=== PATIENT | female | born 1990 | race American Indian/Alaskan Native ===

== ENCOUNTER 2018-01-01 09:50 | Inpatient (IN) | payer MEDICAID ==
--- NOTE | 2017-12-31 18:51 | History and Physical Report ---
History of Present Illness Date of examination: 12/26/17 Chief complaint: Repeat delivery History of present illness: Past History : 4 Term Births: 2 Premature Births: 0 Living Children: 2 Para: 2 Mult. Births: 0 Prev : 2 Prev. attempt? 0 Aborta: 1 Elect. Ab: 0 Spont. Ab: 0 Ectopics: 1 # 1 Delivery date: 08/17/2008 Weeks Gestation: 41 labor: no Delivery type: Hours of labor: 18 Anesthesia type: spinal Delivery location: [facility] Sex: Female weight: 7-4 Name: Jacquie Comments: Failed induction # 2 Delivery date: 08/2015 Delivery type: ectopic Delivery location: [place] Comments: MTX # 3 Delivery date: 06/30/2016 Weeks Gestation: 39 labor: no Delivery type: Anesthesia type: spinal Delivery location: [facility] Infant Sex: Male weight: 8-15 Name: Pérez Past Medical History: Blood Transfusion (2015) Anemia Past Surgical History: (2008) (2015) Family History Summary: Other family member - Has No Family History of Ovarvian Cancer - Entered On: 07/09 Other family member - Has No Family History of Colon Cancer - Entered On: 2017 Other family member - Has Family History of Hypertension - Entered On: 07/09/2017 Other family member - Has Family History of Diabetes - Entered On: 07/09/2017 Other family member - Has Family History Breast Cancer - Entered On: 07/09/2017 Social History: [employer] student Patient is single Risk Factors: Smoked Tobacco Use: Never smoker Drug use: no HIV high-risk behavior: low risk Alcohol use: no Past Medical History Blood Transfusions: yes 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 of genital herpes: no Genetic History Congenital Heart Defect: Mom: no Dad: no Ruma Disease: Mom: no Dad: no Thalassemia Mom: no Dad: no Neural Tube Defect Mom: no Dad: no Down's Syndrome Mom: no Dad: no Addi-Sachs Mom: no Dad: no Sickle Cell Disease/Trait Mom: yes Dad: no Hemophilia Mom: no Dad: no Muscular Dystrophy Mom: no Dad: no Cystic Fibrosis Mom: no Dad: no Sarah Chorea Mom: no Dad: no Mental Retardation Mom: no Dad: no Fragile X Mom: no Dad: no Other Genetic/Chromosomal Disorder Mom: no Dad: no Child w/other defect Mom: no Dad: no Enviromental Exposures Xray Exposure: no Medication, drug, or alcohol use since LMP: no Chemical/Other Exposure: no Exposure to Cat Liter: no Hx of Parvovirus (Fifth Disease): no Active Medications (reviewed today): FORMULA 27-1 MG ORAL TABLET ( VIT-FE FUMARATE-FA) 1 po q day as directed Current Allergies (reviewed today): No known allergies Problem # 1: Maternal care due to uterine scar from other previous surgery ( [id number]) Orders: OB follow up ([id number]) Urine Chemstrip ([id number]) Consent reviewed and signed . The risks and alternatives for this surgery were reviewed with the patient. She was informed of possible bleeding, infection, injury to bowel, bladder, ureters or other adjacent organs. The patient was instructed/informed the following: The normal length of hospital stay for this procedure. Nothing to eat or drink after midnight the evening prior to surgery. Pre-op instruction sheets given. Wound care instructions given. Infection precautions reviewed, patient to call for any signs or symptoms of infection. The usual discomforts associated with this procedure were detailed. Proper use of pain medicines was reviewed. Patient was given ample opportunity to have all her questions answered before signing informed consent. Past History - Obstetrical History Expected Date of Delivery: 01/05/18 Actual Gestation: 39 Week(s) 3 Day(s) : 4 Medications and Allergies Allergies Allergy/AdvReac Type Severity Reaction Status Date / Time No Known Allergies Allergy Unverified 06/29/16 07:00 Home Medications Medication Instructions Recorded Confirmed Last Taken Type Pnv Plus Multivit Tab 1 tab PO DAILY 06/30/16 01/01/18 1 Day Ago History ~06/29/16 - Physical Exam Breasts: Positive: deferred Cardiovascular: Regular rate Lungs: Positive: Clear to auscultation, Normal air movement Abdomen: Positive: other (obese) Uterus: Positive: enlarged. Negative: tender - Obstetrical FHR: category 1 Results Result Diagrams: 01/01/18 10:10 All other labs normal. Assessment and Plan Patient has been reassessed/reevaluated/re-examined. H&P has been reviewed. No interval changes. - Patient Problems (1) 39 weeks gestation of Current Visit: No Status: Acute (2) Adult BMI 36.0-36.9 kg/sq m Current Visit: No Status: Acute (3) Previous section Current Visit: No Status: Acute
[~2018-01-01 09:50] MED LIST: ANCEF/STERILE WATER 2 GM/20 ML 2 GM/20 ML SYRINGE IV NR; BICITRA PO NR; PEPCID IV NR; REGLAN IV NR
[2018-01-01 10:38] LABS: Hematocrit 29.3 % (30.3-42.9); Hemoglobin 10.1 gm/dl (10.1-14.3); Mean Corpuscular HGB Conc 35 % (30-34); Mean Corpuscular Hemoglobin 28 pg (28-32); Mean Corpuscular Volume 81 fl (79-97); Platelet Count 360 K/mm3 (140-440); Red Cell Distribution Width 16.7 % (13.2-15.2)
[2018-01-01] MEDS: LACTATED RINGERS 1,000 ML IV SCH ×2 (10:39→10:40)
[2018-01-01] MEDS ORDERED: PHENERGAN PO PRN (10:39)
[2018-01-01] MEDS ORDERED: ZOFRAN IV PRN (10:39)
[2018-01-01] MEDS ORDERED: NARCAN 0.4 MG/1 ML IV PRN ×2 (10:39→16:53)
[2018-01-01] MEDS ORDERED: PHENERGAN PR PRN (10:39)
[2018-01-01] MEDS ORDERED: BENADRYL IV PRN (10:39)
--- NOTE | 2018-01-01 10:39 | Anesthesia Consultation ---
Anesthesia Consult and Med Hx Date of service: 01/01/18 - Airway Anesthetic Teeth Evaluation: Good ROM Head & Neck: Adequate Mental/Hyoid Distance: Adequate Mallampati Class: Class II Intubation Access Assessment: Probably Good - Pre-Operative Health Status ASA Pre-Surgery Classification: ASA2 Proposed Anesthetic Plan: Epidural, Spinal - Pulmonary Hx Asthma: No COPD: No Hx Pneumonia: No - Cardiovascular System Hx Hypertension: No - Central Nervous System Hx Seizures: No Hx Psychiatric Problems: No - Endocrine Hx Renal Disease: No Hx End Stage Renal Disease: No Hx Hypothyroidism: No Hx Hyperthyroidism: No - Hematic Hx Anemia: Yes (2008) Hx Sickle Cell Disease: No - Other Systems Hx Alcohol Use: No Hx Obesity: Yes (BMI 35.3)
--- NOTE | 2018-01-01 10:39 | Anesthesia Day of Surgery ---
Anesthesia Day of Surgery - Day of Surgery Patient Examined: Yes Patient H&P Reviewed: Yes Patient is NPO: Yes
[2018-01-01] MEDS ORDERED: SODIUM CHLORIDE FLUSH SYRINGE 10 ML IV NR (11:00)
[2018-01-01] MEDS ORDERED: ANCEF/STERILE WATER 2 GM/20 ML IV ONE (12:12)
[2018-01-01] MEDS ORDERED: WATER FOR IRRIG STERILE IR ONE (12:30)
[2018-01-01] MEDS ORDERED: NACL 0.9% IR ONE (12:30)
[2018-01-01] MEDS: PITOCin/NS 20 UNIT/1000ML DRIP 20 UNITS/1,000 ML BAG IV SCH ×2 (12:35→13:18)
[2018-01-01] MEDS ORDERED: NEO SYNEPHRINE/NS Syringe(OR USE) IV ONE ×2 (12:38)
[2018-01-01] MEDS ORDERED: METHERGINE IM ONE ×2 (12:41→13:26)
[2018-01-01] MEDS ORDERED: NACL 0.9% 1000 ML 1,000 ML ONE (12:44)
[2018-01-01] MEDS ORDERED: MORPHINE ONE (12:45)
[2018-01-01] MEDS ORDERED: XYLOCAINE MPF 2% ONE (12:46)
[2018-01-01] MEDS ORDERED: DILAUDID ONE (12:48)
[2018-01-01] MEDS: DILAUDID IV PRN ×2 (13:30→13:58)
--- NOTE | 2018-01-01 13:48 | Operative Report ---
Operative Report Operative Report: Date: 01/01/2018 Preoperative diagnosis: 1. Intrauterine at 39 weeks 2. Repeat delivery 3. Body Mass index 35 Postoperative diagnosis: 1. Intrauterine at 39 weeks 2. Repeat delivery 3. Body Mass index 35 Procedure: Low uterine transverse incision for delivery Surgeon: Chiquis Palacio MD Welfare Centre Manager: Ingrid Griggs CST Anesthesia: Epidural Anesthesiologist: Angel Peterson M.D. Estimated blood loss: 700 mL Urine out: 50 mL Findings: Live born female . Weight 6 lbs. 15 oz. Apgars 8 at 1 minute and 9 at 5 minutes. Uterus normal, tubes normal, ovaries normal. Procedure: After risk, benefits, complications, consequences and alternatives for this procedure were discussed with patient and consents were reviewed and signed, she was taken to the OR where epidural anesthesia was placed. She was then placed in the left lateral tilt position, and prepped and draped in the usual sterile fashion. Timeout was performed, and an appropriate level of anesthesia was noted, a Pfannenstiel incision was made and extended to the fascia which was incised and extended in the lateral directions. The overlying fascia was sharply dissected away from the underlying rectus muscles in the superior and inferior directions. The midline was entered bluntly. The vesicouterine fold was incised and with blunt dissection the bladder flap was created. A transverse incision was made in the lower uterine segment and extended in superiolateral direction with finger fractionation. Clear fluid was noted. The infant was delivered from cephalic OA position. Mouth and nose were bulb suctioned. Spontaneous cry and excellent tone were noted. Cord was doubly clamped and cut. The was given to /resuscitation team present. The placenta was manually extracted. The uterus was then exteriorized and cleared of any further products of conception or placental tissue. The incision was reapproximated using 0 Vicryl in a running interlocking stitch. Grossly normal uterus, tubes and ovaries were noted. Once hemostasis was noted, the uterus was allowed back into the pelvic cavity. The pelvis was irrigated with warm normal saline. Again hemostasis was noted . Surgicel applied for further hemostasis. Interceed was then placed to prevent adhesions. Then attention was turned to the rectus muscles. The rectus muscles reapproximated using 0 Vicryl in a simple interrupted stitch x 3. Once hemostasis was noted, the fascia was reapproximated using 0 Vicryl running stitch fashion. Once hemostasis was noted skin incision was reapproximated using 4-0 Vicryl on a Dhaval needle in a subcuticular manner. Counts were correct 3. Patient tolerated procedure well state recovery room in stable condition.
[2018-01-01] MEDS: TORADOL IV PRN (14:18)
[2018-01-01 15:41] LABS: Bilirubin,Urine NEG (Negative); Blood,Urine NEG (Negative); Color,Urine Yellow (Yellow); Hyaline Casts,Urine 1 /LPF; Mucus,Urine FEW /HPF; Protein,Urine <15 mg/dL mg/dL (Negative); Urobilinogen,Urine < 2.0 mg/dL (<2.0); WBC,Urine < 1.0 /HPF (0.0-6.0)
[2018-01-01] MEDS ORDERED: TYLENOL PR PRN (16:53)
[2018-01-01] MEDS ORDERED: LANSINOH TP PRN (16:53)
[2018-01-01] MEDS ORDERED: SODIUM CHLORIDE FLUSH SYRINGE 10 ML IV SCH (16:53)
[2018-01-01] MEDS ORDERED: TUCKS PAD TP PRN (16:53)
[2018-01-01] MEDS ORDERED: TYLENOL PO PRN (16:53)
[2018-01-01 16:54] LABS: Uric Acid 4.2 mg/dL (3.5-7.6)
[2018-01-01 17:00] LABS: Alanine Aminotransferase < 5 units/L (7-56)
[2018-01-01] MEDS ORDERED: D5LR 1,000 ML IV SCH (18:00)
[2018-01-01] MEDS ORDERED: PITOCin/NS 20 UNIT/1000ML DRIP 20 UNITS/1,000 ML BAG IV SCH (18:00)
[2018-01-02 00:40] LABS: Hematocrit 27.4 % (30.3-42.9); Hemoglobin 9.3 gm/dl (10.1-14.3)
[2018-01-02] MEDS: ANCEF/NS 1 GM/50 ML 1 GM/50 ML BAG IV SCH ×2 (01:30→08:15)
[2018-01-02] MEDS ORDERED: BOOSTRIX IM ONE (06:00)
[2018-01-02] MEDS: TORADOL IV PRN (06:14)
[2018-01-02] MEDS: PERCOCET 5/325 PO PRN ×3 (08:03→21:57)
--- NOTE | 2018-01-02 12:07 | Progress Note ---
Assessment and Plan patient doing well, no complaints, pain well controlled. She is oob in room with abd binder on. H&H 9.3/27.4, VSSAF (b/p's running 130-150's/70-80's - no ALBRIGHT , visual changes or epigastric pain.) incision D&I. Plan to continue postop pathway and monitoring for elevated b/p's. - Patient Problems (1) delivery delivered Current Visit: Yes Status: Acute Subjective - Subjective Date of service: 01/02/18 Principal diagnosis: postop day # 1 s/p repeat c/s Patient reports: appetite normal, voiding normally, pain well controlled, ambulating normally, no dizzy ambulation, no flatus, no nauseated : doing well, bottle feeding (breast and bottle feeding) Objective - Vital Signs Latest vital signs: Vital Signs Temp Pulse Resp BP BP Pulse Ox 01/02/18 08:14 98.4 F 73 16 137/77 99 01/02/18 04:40 98.3 F 83 20 143/88 97 01/02/18 01:20 98.5 F 81 20 141/84 99 01/01/18 21:01 80 153/86 100 01/01/18 19:27 97.7 F 79 20 163/99 100 01/01/18 16:30 98.0 F 73 18 136/71 93 01/01/18 14:15 75 11 L 142/87 99 01/01/18 14:10 70 9 L 150/85 99 01/01/18 14:05 72 13 148/84 95 01/01/18 14:00 98.1 F 73 11 L 145/87 100 01/01/18 13:55 65 11 L 155/83 99 01/01/18 13:50 69 11 L 147/79 100 01/01/18 13:45 67 10 L 143/79 99 01/01/18 13:40 70 9 L 143/87 100 01/01/18 13:35 69 14 137/78 95 01/01/18 13:30 70 12 137/77 98 01/01/18 13:25 76 12 139/77 98 01/01/18 13:20 82 12 141/77 99 01/01/18 13:16 91 H 17 141/82 01/01/18 13:15 97.9 F 01/01/18 13:13 89 108/62 Intake and Output 01/01/18 01/02/18 01/02/18 23:59 07:59 15:59 Intake Total 410 Output Total 300 1600 Balance -300 -1190 Intake: IV 50 ANCEF/NS 1 GM/50 ML 1 gm 50 In 50 ml @ 100 mls/hr IV Q8H [facility] Rx#:[id number] Oral 360 Output: Urine 300 1600 Indwelling Catheter 300 1200 Void 400 Other: Total, Intake Amount 120 Total, Output Amount 300 400 - Exam Breasts: Present: normal, Cardiovascular: Present: Regular rate Lungs: Present: Clear to auscultation, Normal air movement Abdomen: Present: normal appearance, soft Vulva: both: normal Uterus: Present: normal, firm, fundal height at umbilicus Extremities: Present: normal Incision: Present: normal, dry, intact - Labs Labs: Abnormal lab results 01/01/18 01/02/18 Range/Units 16:04 00:17 Hgb 9.3 L (10.1-14.3) gm/dl Hct 27.4 L (30.3-42.9) % Creatinine 0.4 L (0.7-1.2) mg/dL ALT < 5 L (7-56) units/L Lactate Dehydrogenase 223 H (91-180) units/L
[2018-01-02] MEDS: MOTRIN PO PRN ×2 (14:33→21:33)
[2018-01-03] MEDS: MOTRIN PO PRN ×4 (04:00→23:24)
[2018-01-03] MEDS: PERCOCET 5/325 PO PRN ×4 (04:05→23:24)
--- NOTE | 2018-01-03 06:37 | Discharge Summary ---
Providers - Providers Date of Admission: 01/01/18 09:50 Date of discharge: 01/03/18 (pt c/o some incision pain but desires d/c later today) Attending physician: PRO NUNEZ 01/01/18 16:53 Consult to Cardiopulmonary Physical Therapist [CONS] Routine Reason For Exam: Primary care physician: ERA BRAN Hospitalization Reason for admission: section Delivery: Procedure: repeat low transverse Episiotomy: none Laceration: none Incision: normal, dry, intact Other procedures: none complications: none Discharge diagnosis: IUP at term delivered [place] baby: female Hospital course: uncomplicated repeat section Pt resting in bed states she has more pain this time. She does state she has been OOB and is passing gas. Abdomen is soft with normal bowel sounds VSS BP this AM 129/71 Pt w/o complaint of ALBRIGHT, blurred vision, chest pain. FF below umb Lochia scant Incision D&I H&H stable no s/sx of anemia.Doing well s/p repeat c/ s P: d/c today with instructions. Encouraged OOB, shower, use abdominal binder for support. RX will be provided at d/c Condition at discharge: Good Disposition: DC-01 TO HOME OR SELFCARE - Discharge Diagnoses (1) delivery delivered Status: Acute Comment: RTO 1 week postop care Plan - Discharge Medications Prescriptions: Ibuprofen [Motrin 800 MG tab] 800 mg PO TID PRN #30 tablet PRN Reason: Pain oxyCODONE /ACETAMINOPHEN [Percocet 5/325 mg] 1 - 2 tab PO Q4HR PRN #30 tablet PRN Reason: Pain - Provider Discharge Summary Activity: routine, no sex for 6 weeks, no heavy lifting 4 weeks, no strenuous exercise Diet: routine Instructions: routine Additional instructions: [] Smoking cessation referral if applicable(refer to patient education folder for contact #) [] Refer to [facility] Booklet Call your doctor immediately for: * Fever > 100.5 * Heavy vaginal bleeding ( >1 pad per hour) * Severe persistent headache * Shortness of breath * Reddened, hot, painful area to leg or breast * Drainage or odor from incision. * Keep incision clean and dry at all times and follow doctor's instructions regarding bathing/showering - Follow up plan Follow up: ERA BRAN MD [Primary Care Provider] - 7 Days GREGORIO BROWNLEE CNM [Advanced Practice Nurse] - 7 Days (Congratulations! Please call [phone] to schedule your postoperative visit in 1 week. Take medications as prescribed. Call with any headache, not relieved with Tylenol, blurred vision, chest pain. Call with any concerns.)
[2018-01-03 19:35] LABS: Bilirubin,Urine NEG (Negative); Blood,Urine MOD (Negative); Color,Urine Yellow (Yellow); Mucus,Urine FEW /HPF; Protein,Urine <15 mg/dL mg/dL (Negative)
[2018-01-03 20:00] LABS: Hematocrit 28.2 % (30.3-42.9); Hemoglobin 9.6 gm/dl (10.1-14.3); Mean Corpuscular HGB Conc 34 % (30-34); Mean Corpuscular Hemoglobin 28 pg (28-32); Mean Corpuscular Volume 82 fl (79-97); Platelet Count 361 K/mm3 (140-440); Red Blood Count 3.44 M/mm3 (3.65-5.03); Red Cell Distribution Width 17.8 % (13.2-15.2)
[2018-01-03 20:17] LABS: Alanine Aminotransferase 8 units/L (7-56); Uric Acid 4.4 mg/dL (3.5-7.6)
[2018-01-04] MEDS: MOTRIN PO PRN (05:31)
[2018-01-04] MEDS: PERCOCET 5/325 PO PRN ×3 (05:32→20:04)
[2018-01-04] MEDS ORDERED: BOOSTRIX IM ONE (06:00)
--- NOTE | 2018-01-04 08:48 | Progress Note ---
Assessment and Plan - Patient Problems (1) 39 weeks gestation of Current Visit: No Status: Acute (2) Adult BMI 36.0-36.9 kg/sq m Current Visit: No Status: Acute (3) Previous section Current Visit: No Status: Acute (4) PIH ( induced hypertension) Current Visit: Yes Status: Acute Qualifiers: Trimester: unspecified trimester Qualified Code(s): O13.9 - Gestational [ -induced] hypertension without significant proteinuria, unspecified trimester Plan to address problem: Labs normal however patient symptomatic for PreEclampsia, possible atypical presentation. She had a similar episode 2015, however BP's higher this time. will proceed with MgSO4 prophylaxis for 24hours. Plan of care discussed, she voiced understanding and agrees with plan. RN aware of POC. Subjective - Subjective Date of service: 01/04/18 Principal diagnosis: postop day # 4 s/p repeat c/s, PIH Interval history: Patient resting in bed, complains of ALBRIGHT and RUQ pain Patient reports: appetite normal, pain well controlled, flatus Objective - Vital Signs Latest vital signs: Vital Signs Temp Pulse Resp BP BP Pulse Ox 01/04/18 03:38 97.8 F 73 20 145/84 01/04/18 00:12 142/82 01/04/18 00:11 20 147/85 01/04/18 00:00 98.0 F 75 20 147/85 95 01/03/18 22:20 97.8 F 83 20 166/92 98 01/03/18 17:25 20 01/03/18 17:23 20 01/03/18 16:38 144/84 01/03/18 16:02 98.3 F 88 20 156/79 98 01/03/18 11:52 86 20 142/76 01/03/18 09:49 20 Intake and Output 01/03/18 01/04/18 01/04/18 22:59 06:59 14:59 Intake Total 360 Balance 360 Intake: Oral 360 Other: Total, Intake Amount 360 # Voids Void 1 - Exam Breasts: Present: deferred Cardiovascular: Present: Regular rate Lungs: Present: Clear to auscultation, Normal air movement Abdomen: Present: normal appearance, normal bowel sounds Uterus: Present: fundal height below umbilicus Extremities: Present: edema (1+) Deep Tendon Reflex Grade: Normal +2 Incision: Present: normal, dry, intact - Labs Labs: Abnormal lab results 01/03/18 01/03/18 Range/Units 19:19 19:19 WBC 12.6 H (4.5-11.0) K/mm3 RBC 3.44 L (3.65-5.03) M/mm3 Hgb 9.6 L (10.1-14.3) gm/dl Hct 28.2 L (30.3-42.9) % RDW 17.8 H (13.2-15.2) % Creatinine 0.6 L (0.7-1.2) mg/dL Lactate Dehydrogenase 242 H (91-180) units/L
[2018-01-04] MEDS ORDERED: LACTATED RINGERS 1,000 ML IV SCH (09:00)
[2018-01-04] MEDS: LACTATED RINGERS 1,000 ML IV SCH (10:00)
[2018-01-04] MEDS: MAGNESIUM SULFATE 40GM/1000ML 40 GM/1,000 ML BAG IV SCH (10:00)
[2018-01-04] MEDS ORDERED: APRESOLINE IV NR (13:00)
[2018-01-05] MEDS: PERCOCET 5/325 PO PRN ×4 (01:12→23:42)
[2018-01-05] MEDS: MAGNESIUM SULFATE 40GM/1000ML 40 GM/1,000 ML BAG IV SCH (05:25)
[2018-01-05] MEDS: LACTATED RINGERS 1,000 ML IV SCH (05:25)
[2018-01-05] MEDS: NORMODYNE PO SCH ×2 (11:30→21:05)
--- NOTE | 2018-01-05 12:28 | Progress Note ---
Assessment and Plan - Patient Problems (1) delivery delivered Current Visit: Yes Status: Acute (2) PIH ( induced hypertension) Current Visit: Yes Status: Acute Qualifiers: Trimester: unspecified trimester Qualified Code(s): O13.9 - Gestational [ -induced] hypertension without significant proteinuria, unspecified trimester Plan to address problem: We'll start on labetalol this morning to monitor her blood pressure. Subjective - Subjective Date of service: 01/05/18 Principal diagnosis: postop day # 4 s/p repeat c/s, PIH Interval history: Patient on magnesium sulfate recently discharged patient down with a slight headache did have elevated blood pressure this morning a diastolic of 100. Denies any nausea vomiting complains of normal postoperative pain Patient reports: appetite normal, voiding normally, pain well controlled, flatus : doing well Objective - Vital Signs Latest vital signs: Vital Signs Temp Pulse Resp BP BP BP Pulse Ox 01/05/18 10:24 98.1 F 20 165/100 01/05/18 07:47 97.6 F 85 20 138/79 98 01/05/18 06:09 97.9 F 78 20 143/89 98 01/05/18 03:11 97.7 F 97 H 20 157/94 98 01/05/18 01:18 97.8 F 89 20 153/93 96 01/05/18 01:12 18 01/04/18 22:58 98.5 F 95 H 20 149/88 99 01/04/18 22:40 98.5 F 86 20 141/90 98 01/04/18 21:04 18 01/04/18 20:54 98.6 F 91 H 20 157/100 99 01/04/18 20:04 20 01/04/18 18:15 89 16 148/90 100 01/04/18 15:45 97.7 F 83 22 156/85 99 01/04/18 14:15 82 16 152/94 100 01/04/18 13:15 20 01/04/18 13:00 90 16 141/78 98 Intake and Output 01/04/18 01/05/18 01/05/18 22:59 06:59 14:59 Intake Total 1680 2330.833 Output Total 550 2600 Balance 1130 -269.167 Intake: IV 1970.833 Lactated Ringers 1,000 ml 1000 @ 75 mls/hr IV DIRECT [facility] Rx#:[id number] MAGNESIUM SULFATE 40GM/ 970.833 1000ML 40 gm In 1,000 ml @ 2 GM/HR 50 mls/hr IV DIRECT [facility] Rx#:[id number] Oral 1440 Intake, Free Water 240 360 Output: Urine 550 2600 Void 550 2600 Other: Total, Intake Amount 720 Total, Output Amount 550 500 Voiding Method Toilet # Voids 1 Void 1 - Exam Breasts: Present: deferred Cardiovascular: Present: Regular rate Lungs: Present: Normal air movement Abdomen: Present: normal appearance, soft, normal bowel sounds Uterus: Present: firm Extremities: Present: edema Incision: Present: normal, dry, intact - Labs Labs: Abnormal lab results 01/04/18 01/04/18 01/05/18 Range/Units 21:38 23:23 08:53 Magnesium 10.90 H 4.70 H 5.60 H (1.7-2.3) mg/dL
[2018-01-06] MEDS ORDERED: NORMODYNE PO ONE (03:59)
[2018-01-06] MEDS: PERCOCET 5/325 PO PRN (05:20)
--- NOTE | 2018-01-06 09:00 | Discharge Summary ---
Providers - Providers Date of Admission: 01/01/18 09:50 Date of discharge: 01/06/18 Attending physician: PRO NUNEZ 01/01/18 16:53 Consult to Control Systems Specialist [CONS] Routine Reason For Exam: Primary care physician: ERA BRAN Hospitalization Reason for admission: section Procedure: section Incision: normal, dry, intact Other procedures: none complications: other (hypertension) Discharge diagnosis: IUP at term delivered [place] baby: female Hospital course: Please see dictated H&P and operative note for detail. Patient was admitted and underwent scheduled section. Her course was complicated by elevated blood pressures on day 3 with diastolics in the 90s and over 100. Patient also complained of headache. Her PIH labs were within normal limits but patient did receive 24 hours of magnesium sulfate prophylaxis. Patient blood pressure improved with titrating antihypertensive medication on the evening of postop day 4. Patient's the discharge was on labetalol 300 mg twice a day. Patient's post operative day one hematocrit 28.2% . At time of discharge patient was tolerated regular diet and passed flatus and remained afebrile throughout her stay. Condition at discharge: Good Disposition: DC-01 TO HOME OR SELFCARE - Discharge Diagnoses (1) delivery delivered Status: Acute Comment: RTO 1 week postop care (2) PIH ( induced hypertension) Status: Acute Qualifiers: Trimester: unspecified trimester Qualified Code(s): O13.9 - Gestational [ -induced] hypertension without significant proteinuria, unspecified trimester Plan - Discharge Medications Prescriptions: Labetalol HCl 300 mg PO BID #60 tablet Ibuprofen [Motrin 800 MG tab] 800 mg PO TID PRN #30 tablet PRN Reason: Pain Labetalol [Normodyne TAB] 200 mg PO BID #60 tablet oxyCODONE /ACETAMINOPHEN [Percocet 5/325 mg] 1 - 2 tab PO Q4HR PRN #30 tablet PRN Reason: Pain - Provider Discharge Summary Activity: routine, no sex for 6 weeks, no heavy lifting 4 weeks, no strenuous exercise Diet: routine Instructions: routine Additional instructions: [] Smoking cessation referral if applicable(refer to patient education folder for contact #) [] Refer to [facility] Booklet Call your doctor immediately for: * Fever > 100.5 * Heavy vaginal bleeding ( >1 pad per hour) * Severe persistent headache * Shortness of breath * Reddened, hot, painful area to leg or breast * Drainage or odor from incision. * Keep incision clean and dry at all times and follow doctor's instructions regarding bathing/showering Patient to keep scheduled appointment on January 08. - Follow up plan Follow up: ERA BRAN MD [Primary Care Provider] - 7 Days GREGORIO BROWNLEE CNM [Advanced Practice Nurse] - 7 Days (Congratulations! Please call [phone] to schedule your postoperative visit in 1 week. Take medications as prescribed. Call with any headache, not relieved with Tylenol, blurred vision, chest pain. Call with any concerns.)
[2018-01-06] MEDS ORDERED: NORMODYNE PO SCH (10:00)
[2018-01-06 15:22] VITALS: BP 145/81
== END 2018-01-06 12:00 | disposition home or self-care (01) | DRG 765 ==
LOC: APU 09:50 → OB 15:01
PROVIDERS: ADMIT Obstetrics & Gynecology; ATTEND Obstetrics & Gynecology
PROC: 10D00Z1 Extraction of Products of Conception, Low, Open Approach (ICD-10-PCS; principal; 2018-01-01)
DX: O34.219 Maternal care for unspecified type scar from previous cesarean delivery (principal); O13.4 Gestational [pregnancy-induced] hypertension without significant proteinuria, complicating childbirth; O99.214 Obesity complicating childbirth; E66.9 Obesity, unspecified; Z3A.39 39 weeks gestation of pregnancy; Z37.0 Single live birth; Z68.35 Body mass index [BMI] 35.0-35.9, adult
CPT/HCPCS: 36415; 81001; 82565; 83615; 83735; 84450; 84460; 84550; 85014; 85018; 85027; 86592; 86850; 86900; 86901; 90715; 99211; C1765; G0463; J0360; J0690; J1170; J1885; J2210; J2270; J2370; J2590; J2765; J3475; J7030; J7120; J7121